=== PATIENT | female | born 1965 | race Caucasian/White ===

== ENCOUNTER 2018-05-11 12:27 | Emergency (ER) | payer OTHER ==
[2018-05-11] MEDS: KETOROLAC 30 MG INJ IM (16:20)
== END 2018-05-11 17:27 | disposition home or self-care (01) ==
LOC: FTE 12:27
DX: M54.41 Lumbago with sciatica, right side (principal)
CPT/HCPCS: 72100; 81025; 96372; 99284-25

== ENCOUNTER 2018-09-15 10:17 | Emergency (ER) | payer OTHER ==
[2018-09-15] MEDS: KETOROLAC 60 MG INJ IM (11:49)
== END 2018-09-15 12:00 | disposition home or self-care (01) ==
LOC: FTE 10:17
DX: M54.40 Lumbago with sciatica, unspecified side (principal)
CPT/HCPCS: 96372; 99284-25